=== PATIENT | male | born 1995 | race Caucasian/White ===

== ENCOUNTER 2017-03-20 14:14 | Emergency (ER) | payer BC ==
[2017-03-20 14:19] VITALS: RESP 18; TEMP 97.5
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
[2017-03-20 16:33] VITALS: BP 135/81; PULSE 66; O2SAT 97
== END 2017-03-20 16:34 | disposition home or self-care (01) ==
DX: S20.221A Contusion of right back wall of thorax, initial encounter (principal); R31.9 Hematuria, unspecified; Y04.0XXA Assault by unarmed brawl or fight, initial encounter

== ENCOUNTER 2017-05-25 05:38 | Emergency (ER) | payer BC ==
--- NOTE | 2017-05-25 05:42 | EDPHY ---
H & P Time Seen by Provider: 05/25/17 05:42 HPI/ROS: HPI CHIEF COMPLAINT: Palpitations, anxiety, numbness and tingling in hands and feet HISTORY OF PRESENT ILLNESS: Patient is a 21-year-old male, he is otherwise healthy however does have a history of urinary reflux when he was a kid and some kidney damage from this he takes allopurinol and enalapril chronically to protect his kidneys. He states he has been off his enalapril for approximately 10 days. States yesterday last night he worked out very hard at the gym from 8: 00 p.m. To 11:00 p.m.. He then tried to go to sleep around midnight he was playing video games and noticed that his heart was palpating. He states he had very strong beats. He thought that was somewhat weird. He tried to go to sleep and every time he would try to go to sleepy felt like he could catch his breath. And that his heart was palpating this caused him concern is unable sleep all evening and decided come the emergency room around 6 o'clock this morning. He denies any chest pain. Denies pleuritic pain. Denies recent trauma. States he worked out vigorously earlier and did well. He distally reports to me that he had numbness and tingling in his hands and feet. He felt like his legs were very heavy. He also states that he could catch his breath. He denies any vomiting or diarrhea. He does report that he had a recent viral illness and took an antibiotic for this this was before spring. Patient takes enalapril 5 mg, states his last dose was on the third (8 days a go ) Past Medical History: Kidney disease on enalapril and allopurinol Past Surgical History: No recent surgery Social History: [employer] student, occasional marijuana use, occasional alcohol use and occasional cocaine use he reports cocaine 1 week ago. Family History: Noncontributory ROS REVIEW OF SYSTEMS: A comprehensive 10 point review of systems is otherwise negative aside from elements mentioned in the history of present illness. Exam Constitutional appears well nontoxic no acute distress however slightly anxious , triage nursing summary reviewed, vital signs reviewed, awake/alert. Eyes normal conjunctivae and sclera, EOMI, PERRLA. HENT normal inspection, atraumatic, moist mucus membranes, no epistaxis, neck supple/ no meningismus, no raccoon eyes. Respiratory clear to auscultation bilaterally, normal breath sounds, no respiratory distress, no wheezing. Cardiovascular rate normal, regular rhythm, no murmur, no edema, distal pulses normal. Gastrointestinal soft, non-tender, no rebound, no guarding, normal bowel sounds, no distension, no pulsatile mass. Genitourinary no CVA tenderness. Musculoskeletal no midline vertebral tenderness, full range of motion, no calf swelling, no tenderness of extremities, no meningismus, good pulses, neurovascularly intact. Skin pink, warm, & dry, no rash, skin atraumatic. Neurologic awake, alert and oriented x 3, AAOx3, moves all 4 extremities equally, motor intact, sensory intact, CN II-XII intact, normal cerebellar, normal vision, normal speech. Psychiatric anxious, normal mood/affect. Heme/Lymph/Immune no lymphadenopathy. Differential Diagnosis: Includes but is not limited to in a particular order cardiac arrhythmia, electrolyte disturbance, dehydration, rhabdomyolysis, anxiety, panic attack, pulmonary embolism, pneumothorax, ACS Medical Decision Making: Plan for this patient full cardiac cath lab radiology technologist IV establishment with fluid bolus, check electrolytes including magnesium, CK, troponin, EKG, cardiac cath lab radiology technologist, D-dimer, IV Ativan for anxiety, UA, TSH, re- evaluate. Re-evaluation: EKG interpretation by me on record in [employer] system. Impression time of EKG 6:12 a.m., sinus rhythm rate of 90 no signs of acute arrhythmia no signs of WPW or Brugada. No signs of ST pelayo or depression no significant T-wave abnormalities rather unremarkable nonischemic EKG. ED x-ray chest one view: Negative for acute cardiopulmonary disease. Image interpreted by myself. 0642AM: I did re-evaluate him at this time. He is resting comfortably she feels much better after 1 mg IV Ativan. He has no acute distress. His current also hard of 83, blood pressure 153/92 and a pulse ox of 96% on room air. He is nonischemic he has no pleuritic pain rib pain no significant short of breath and no hypoxia. His D-dimer was slightly elevated however I do not clinically think that he has a pulmonary embolism I think highly unlikely does not have any risk factors for that. He does not have pretty pain he hypoxic is not tachycardic not had a shortness of breath. Describes 1.[address] angiogram contrast load anyway. I do not think given is very subtly elevated D-dimer and he would benefit from CT angiogram very likely has a PE. 0646AM: Updated on results. His father is risk management intern in [place] and would like me to talk to him about his work up. 0701: Spoke extensively with the patient's father who is an risk management intern in [place]. And her in detail with his workup. His repeat to me that his creatinine baseline creatinine of 1.75. His creatinine was 1.8. So very close to his baseline. His father reports that he does not have any significant hypertension and has been concerned about his blood pressure being this high in the emergency room. Patient is been off enalapril for 8 days approximately. This may be contributing to his hypertension even though he tests for kidney protection. I did review his blood work, EKG, he has been placed on the cardiac cath lab radiology technologist the entire time in the emergency room without any signs of cardiac arrhythmia. His blood pressures been improving. Patient does feel comfortable going home. His nose pain or shortness of breath. No signs of cardiac arrhythmia on the monitor. His EKG is nonischemic without any signs of cardiac arrhythmia. Chemistry lytes appropriate. TSH noted. Troponin negative I recommend the patient takes enalapril as prescribed, additionally allopurinol. I provided him these prescriptions and 1st dose of enalapril in the emergency room. Additionally recommend close monitoring of his blood pressure at home. Additionally understands to follow up with his primary care doctor/kidney specialist. Return to the emergency room he has any worsening palpitations chest pain shortness of breath not feeling well. 0717AM: Patient's current vitals 148/83, heart rate 83 pulse ox 97 on room air. Source: Patient - Medical/Surgical History Hx Asthma: No Hx Chronic Respiratory Disease: Yes Hx Diabetes: No Hx Cardiac Disease: No Hx Renal Disease: No Hx Cirrhosis: No Hx Alcoholism: No Hx HIV/AIDS: No Hx Splenectomy or Spleen Trauma: No Other PMH: Kidney problems from , several renal surgeries. - Social History Smoking Status: Never smoked Constitutional: Initial Vital Signs Temperature (C) 36.9 C 05/25/17 05:42 Heart Rate 94 05/25/17 05:42 Respiratory Rate 16 05/25/17 05:42 Blood Pressure 173/78 H 05/25/17 05:42 O2 Sat (%) 99 05/25/17 05:42 O2 Delivery Mode Room Air Allergies/Adverse Reactions: No Known Allergies Allergy (Verified 05/25/17 05:45) Home Medications: Medication Instructions Recorded Allopurinol 03/20/17 ENALAPRIL MALEATE 03/20/17 Allopurinol [Allopurinol 100 MG 100 mg PO DAILY #30 tab 05/25/17 (*)] Allopurinol [Allopurinol 300 MG 300 mg PO DAILY #30 tab 05/25/17 (RX)] Enalapril Maleate [Vasotec 5 MG 5 mg PO DAILY #30 tab 05/25/17 (*)] Medical Decision Making - Data Points Laboratory Results: Laboratory Results 05/25/17 05:56 05/25/17 05:56 05/25/17 05/25/17 05/25/17 05:58 05:56 05:56 WBC RBC Hgb Hct MCV MCH MCHC RDW Plt Count MPV Neut % (Auto) Lymph % (Auto) Dillon % (Auto) Eos % (Auto) Baso % (Auto) Nucleat RBC Rel Count Absolute Neuts (auto) Absolute Lymphs (auto) Absolute Monos (auto) Absolute Eos (auto) Absolute Basos (auto) Absolute Nucleated RBC Immature Gran % Immature Gran # D-Dimer 0.51 ug/mLFEU H ug/mLFEU (0.00-0.50) Sodium Potassium Chloride Carbon Dioxide Anion Gap BUN Creatinine Estimated GFR Glucose Calcium Magnesium Creatine Kinase CK-MB (CK-2) Fraction CK-MB (CK-2) % Creatine Kinase Interp Troponin I < 0.012 ng/mL ng/mL (0.000-0.034) TSH Urine Opiates Screen NEGATIVE (NEGATIVE) Urine Barbiturates NEGATIVE (NEGATIVE) Ur Phencyclidine Scrn NEGATIVE (NEGATIVE) Ur Amphetamine Screen NEGATIVE (NEGATIVE) U Benzodiazepines Scrn NEGATIVE (NEGATIVE) Urine Cocaine Screen NEGATIVE (NEGATIVE) U Marijuana (THC) Screen NEGATIVE (NEGATIVE) 05/25/17 05/25/17 05:56 05:56 WBC 11.10 10^3/uL H 10^3/uL (3.80-9.50) RBC 4.95 10^6/uL 10^6/uL (4.40-6.38) Hgb 14.9 g/dL g/dL (13.7-17.5) Hct 44.8 % % (40.0-51.0) MCV 90.5 fL fL (81.5-99.8) MCH 30.1 pg pg (27.9-34.1) MCHC 33.3 g/dL g/dL (32.4-36.7) RDW 13.4 % % (11.5-15.2) Plt Count 212 10^3/uL 10^3/uL (150-400) MPV 8.9 fL fL (8.7-11.7) Neut % (Auto) 37.8 % L % (39.3-74.2) Lymph % (Auto) 50.7 % H % (15.0-45.0) Dillon % (Auto) 7.0 % % (4.5-13.0) Eos % (Auto) 3.9 % % (0.6-7.6) Baso % (Auto) 0.4 % % (0.3-1.7) Nucleat RBC Rel Count 0.0 % % (0.0-0.2) Absolute Neuts (auto) 4.20 10^3/uL 10^3/uL (1.70-6.50) Absolute Lymphs (auto) 5.63 10^3/uL H 10^3/uL (1.00-3.00) Absolute Monos (auto) 0.78 10^3/uL 10^3/uL (0.30-0.80) Absolute Eos (auto) 0.43 10^3/uL H 10^3/uL (0.03-0.40) Absolute Basos (auto) 0.04 10^3/uL 10^3/uL (0.02-0.10) Absolute Nucleated RBC 0.00 10^3/uL 10^3/uL (0-0.01) Immature Gran % 0.2 % % (0.0-1.1) Immature Gran # 0.02 10^3/uL 10^3/uL (0.00-0.10) D-Dimer Sodium 145 mEq/L mEq/L (135-145) Potassium 4.0 mEq/L mEq/L (3.5-5.2) Chloride 102 mEq/L mEq/L (97-110) Carbon Dioxide 26 mEq/l mEq/l (22-31) Anion Gap 17 mEq/L H mEq/L (8-16) BUN 29 mg/dL H mg/dL (7-23) Creatinine 1.8 mg/dL H mg/dL (0.7-1.3) Estimated GFR 47 Glucose 92 mg/dL mg/dL (70-100) Calcium 9.6 mg/dL mg/dL (8.5-10.4) Magnesium 1.8 mg/dL mg/dL (1.6-2.3) Creatine Kinase 628 IU/L H IU/L (0-224) CK-MB (CK-2) Fraction Pending CK-MB (CK-2) % Pending Creatine Kinase Interp Pending Troponin I TSH 8.640 uIU/mL H uIU/mL (0.465-4.680) Urine Opiates Screen Urine Barbiturates Ur Phencyclidine Scrn Ur Amphetamine Screen U Benzodiazepines Scrn Urine Cocaine Screen U Marijuana (THC) Screen Medications Given: Discontinued Medications Enalapril Maleate (Vasotec) 5 mg PO EDNOW ONE Stop: 05/25/17 06:38 Last Admin: 05/25/17 06:50 Dose: 5 mg Sodium Chloride (Ns) 1,000 mls @ 0 mls/hr IV EDNOW ONE; Wide Open PRN Reason: Protocol Stop: 05/25/17 05:45 Last Admin: 05/25/17 06:04 Dose: 1,000 mls Sodium Chloride (Ns) 1,000 mls @ 0 mls/hr IV ONCE ONE PRN Reason: Wide Open Stop: 05/25/17 05:56 Last Admin: 05/25/17 06:04 Dose: 1,000 mls Sodium Chloride (Ns) 1,000 mls @ 0 mls/hr IV ONCE ONE PRN Reason: Wide Open Stop: 05/25/17 06:32 Last Admin: 05/25/17 06:36 Dose: 1,000 mls Lorazepam (Ativan Injection) 1 mg IVP EDNOW ONE Stop: 05/25/17 05:55 Last Admin: 05/25/17 06:04 Dose: 1 mg Departure - Departure Disposition: Home, Routine, Self-Care Clinical Impression: Palpitations CKD (chronic kidney disease) Qualifiers: Chronic kidney disease stage: unspecified stage Qualified Code(s): N18.9 - Chronic kidney disease, unspecified Condition: Good Instructions: Heart Palpitations (ED) Additional Instructions: 1. Drink lots of fluids stay well-hydrated. 2. Be sure to take your enalapril and allopurinol. 3. Refrain from drinking alcohol smoking smoking marijuana cocaine. 4. Return emergency room if develops worsening symptoms questions or concerns includes anxiety, chest pain, shortness of breath, passing out further concerns. 5. Additionally it is noted that her thyroid study was slightly elevated. You need to follow up with her primary care doctor about this. 6. Additionally her pressure was noted to be elevated here in the emergency room it has improved wire here but please keep a close eye on it this week you should take it twice a day. I would recommend you by a blood pressure cuff from a local store like [facility]. Referrals: NONE *PRIMARY CARE P,. [Primary Care Provider] - As per Instructions Prescriptions: Allopurinol [Allopurinol 100 MG (*)] 100 mg PO DAILY #30 tab Allopurinol [Allopurinol 300 MG (RX)] 300 mg PO DAILY #30 tab Enalapril Maleate [Vasotec 5 MG (*)] 5 mg PO DAILY #30 tab
[2017-05-25] MEDS ORDERED: NS 1,000 ML IV ONE ×3 (05:44→06:31)
[2017-05-25] MEDS ORDERED: LORazepam 2 MG/ML INJ IVP ONE (05:54)
--- NOTE | 2017-05-25 05:56 | CPEKG ---
Heart Rate: 125 RR Interval: 480 P-R Interval: 144 QRSD Interval: 88 QT Interval: 320 QTC Interval: 462 P [place]: 86 QRS [place]: 90 T Wave [place]: 51 EKG Severity - OTHERWISE NORMAL ECG - EKG Impression: SINUS TACHYCARDIA EKG Impression: BORDERLINE RIGHT AXIS DEVIATION Electronically Signed By: Raissa Castro 26-May-2017 11:18:40
[2017-05-25 06:06] LABS: PLATELET COUNT 212 10^3/uL (150-400)
--- NOTE | 2017-05-25 06:14 | CPEKG ---
Heart Rate: 90 RR Interval: 667 P-R Interval: 140 QRSD Interval: 82 QT Interval: 352 QTC Interval: 431 P [place]: 80 QRS [place]: 79 T Wave [place]: 69 EKG Severity - NORMAL ECG - EKG Impression: SINUS RHYTHM Electronically Signed By: Raissa Castro 26-May-2017 11:18:50
[2017-05-25 06:23] LABS: CREATINE KINASE 628 IU/L (0-224)
[2017-05-25] MEDS ORDERED: ENALAPRIL MALEATE 5 MG TAB PO ONE (06:37)
[2017-05-25 07:27] VITALS: BP 148/93
== END 2017-05-25 07:27 | disposition home or self-care (01) ==
DX: R00.2 Palpitations (principal); N18.9 Chronic kidney disease, unspecified; E86.9 Volume depletion, unspecified
CPT/HCPCS: 80305; 96374; J2060